=== PATIENT | female | born 1995 | race Caucasian/White ===

== ENCOUNTER 2017-03-25 20:30 | Emergency (ER) | payer MEDICAID ==
[~2017-03-25] VITALS: Ht 157.5 cm; Wt 83.5 kg
[2017-03-25 20:36] VITALS: Ht 157.5 cm; Wt 83.5 kg
[2017-03-26 00:37] VITALS: BP 134/83
== END 2017-03-25 22:45 | disposition short-term general hospital (02) ==
LOC: ED 20:30
DX: O62.9 Abnormality of forces of labor, unspecified (principal); Z3A.36 36 weeks gestation of pregnancy

== ENCOUNTER 2017-07-24 19:59 | Emergency (ER) | payer MEDICAID ==
[~2017-07-24] VITALS: Ht 154.9 cm; Wt 85.3 kg
[2017-07-24 20:34] VITALS: Ht 154.9 cm; Wt 85.3 kg
[2017-07-24 22:44] LABS: BASOPHIL % 0.3 % (0-2); PLATELET COUNT 310 x10^3mcL (130-400)
[2017-07-24 22:54] LABS: CALCIUM 8.8 mg/dL (8.5-10.1); CARBON DIOXIDE 31.8 mmol/L (21-32); CHLORIDE SERUM 105 mmol/L (98-107); CREATININE SERUM 0.7 mg/dL (0.6-1.0); GFR1 > 60 mL/min; GLUCOSE SERUM 95 mg/dL (74-106); POTASSIUM SERUM 3.7 mmol/L (3.5-5.1); RED CELL DISTRIBUTION WIDTH 15.1 % (11.5-14.5); SODIUM SERUM 142 mmol/L (136-145)
[2017-07-24 22:58] LABS: ALBUMIN 3.6 g/dL (3.4-5.0); ALKALINE PHOSPHATASE 107 U/L (46-116); ALT/SGPT 30 U/L (14-59); AST/SGOT 19 U/L (15-37); BILIRUBIN TOTAL 0.4 mg/dL (0.20-1.00); LIPASE 145 IU/L (73-393); TOTAL PROTEIN, SERUM 7.2 g/dL (6.4-8.2)
[2017-07-25 03:19] VITALS: BP 112/72
== END 2017-07-25 03:19 | disposition home or self-care (01) ==
LOC: ED 19:59
PROVIDERS: Emergency Medicine
DX: N83.201 Unspecified ovarian cyst, right side (principal)
CPT/HCPCS: J1885; J2270; J2405; J3010; J7030

== ENCOUNTER 2017-09-13 18:00 | Emergency (ER) | payer MEDICAID ==
[~2017-09-13] VITALS: Ht 157.5 cm; Wt 84.8 kg
[2017-09-13 18:05] VITALS: Ht 157.5 cm; Wt 84.8 kg
[2017-09-13 18:58] LABS: microscopic required? YES; urine erythrocyte TRACE (NEGATIVE)
[2017-09-13 19:44] LABS: BASOPHIL % 0.3 % (0-2); PLATELET COUNT 303 x10^3mcL (130-400); RED CELL DISTRIBUTION WIDTH 14.5 % (11.5-14.5)
[2017-09-13 20:00] LABS: CARBON DIOXIDE 28.5 mmol/L (21-32); CHLORIDE SERUM 105 mmol/L (98-107); CREATININE SERUM 0.7 mg/dL (0.6-1.0); GFR1 > 60 mL/min; GLUCOSE SERUM 85 mg/dL (74-106); SODIUM SERUM 142 mmol/L (136-145)
[2017-09-13 20:05] LABS: ALBUMIN 3.5 g/dL (3.4-5.0); ALKALINE PHOSPHATASE 94 U/L (46-116); ALT/SGPT 27 U/L (14-59); AST/SGOT 13 U/L (15-37); BILIRUBIN TOTAL 0.53 mg/dL (0.20-1.00); LIPASE 108 IU/L (73-393); TOTAL PROTEIN, SERUM 6.9 g/dL (6.4-8.2)
[2017-09-13 21:11] VITALS: BP 138/76
== END 2017-09-13 21:11 | disposition home or self-care (01) ==
LOC: ED 18:00
PROVIDERS: Emergency Medicine
DX: N39.0 Urinary tract infection, site not specified (principal); Z98.51 Tubal ligation status
CPT/HCPCS: 36415; 87491; 87591; J1885